=== PATIENT | female | born 1980 | race Caucasian/White ===

== ENCOUNTER 2020-11-13 10:20 | Outpatient (REF) | payer OTHER, SELFPAY ==
[2020-11-13 11:38] LABS: Thyroid Stimulating Hormone 0.64 uIU/mL (0.32-4.0)
[2020-11-14 08:53] LABS: T3 Uptake 34 % (22-35)
[2020-11-15 13:27] LABS: Ceruloplasmin 29 mg/dL (18-53)
[2020-11-17 02:11] LABS: Copper, plasma 74 mcg/dL (70-175)
== END 2020-11-13 10:21 | disposition home or self-care (01) ==
LOC: HO.LAB 10:20
PROVIDERS: PCP Internal Medicine; Visit Provider Psychiatry & Neurology Neurology
DX: G43.909 Migraine, unspecified, not intractable, without status migrainosus (principal)
CPT/HCPCS: 36415; 82390; 82525; 84436; 84443; 84479

== ENCOUNTER 2020-11-14 12:43 | Outpatient (REF) | payer OTHER, SELFPAY ==
[2020-11-17 16:47] LABS: Copper,Urine 24 Hr 17 mcg/24 h (15-60); Total Volume 24 Ur 1575 mL
== END 2020-11-14 12:44 | disposition home or self-care (01) ==
LOC: HO.LNP 12:43
PROVIDERS: Visit Provider Psychiatry & Neurology Neurology
DX: G43.909 Migraine, unspecified, not intractable, without status migrainosus (principal)
CPT/HCPCS: 82525

== ENCOUNTER 2020-11-17 16:00 | Outpatient (REF) | payer OTHER, SELFPAY ==
--- NOTE | 2020-11-17 16:03 | MR_ITS ---
EXAMINATION: MR BRAIN WITHOUT AND WITH CONTRAST CLINICAL INFORMATION: Demyelinating changes in the brain. COMPARISON: No relevant prior imaging. TECHNIQUE: Multiplanar MR imaging of the brain was performed without and with contrast. A total of 6.5 mL Gadavist was utilized for this examination. FINDINGS: There are a few scattered nonspecific foci of T2 intensity within the supratentorial white matter. No infratentorial white matter disease. Postcontrast images reveal no abnormal intracranial mass or enhancement. No intracranial mass effect or midline shift. No abnormal extra axial collection. Lateral and third ventricles are normal. No hydrocephalus. Midline structures including the cervicomedullary junction are normal. No acute bone marrow signal changes. There is no acute territorial infarct. No pathological magnetic susceptibility artifact. Intracranial vascular flow voids are maintained. There is no mastoid middle ear effusion. Mild paranasal sinus disease primarily affecting the ethmoid air cells. Globes and orbits are symmetric. MR/MR head/brain wo/w con IMPRESSION: Unremarkable brain MRI.
== END 2020-11-17 16:01 | disposition home or self-care (01) ==
LOC: HO.MRI 16:00
PROVIDERS: Visit Provider Psychiatry & Neurology Neurology
DX: G37.9 Demyelinating disease of central nervous system, unspecified (principal)
CPT/HCPCS: 70553; A9585